=== PATIENT | male | born 1995 | race Caucasian/White ===

== ENCOUNTER 2017-04-28 20:59 | Emergency (ER) | payer OTHER ==
[2017-04-28] MEDS ORDERED: Albuterol Sulfate 1.25 MG/3 ML NEB ONE (22:00)
[2017-04-28] MEDS ORDERED: Albuterol Sulfate 2.5 mg/3 ml Neb ONE (22:01)
[2017-04-28] MEDS ORDERED: Azithromycin 250 MG TAB ONE (22:38)
--- NOTE | 2017-04-28 22:38 | RAD ---
CHEST ONE VIEW PORTABLE: History: 22-year-old male with history of cough and fever since . FINDINGS: There is some patchy alveolar parenchymal changes in the right upper lobe laterally. Heart size is no rmal. The left lung is clear. No pleural effusion. IMPRESSION: Evidence for right upper lobe pneumonia. POS: [facility]
== END 2017-04-28 23:08 | disposition home or self-care (01) ==
LOC: ERS 20:59
DX: J18.0 Bronchopneumonia, unspecified organism (principal)
CPT/HCPCS: 71010; 94640; J7611